=== PATIENT | female | born 1930 | race African-American/Black ===

== ENCOUNTER 2017-03-30 11:32 | Emergency (ER) | payer OTHER ==
[~2017-03-30] VITALS: Ht 154.9 cm; Wt 54.4 kg
[~2017-03-30 11:32] MED LIST: ASPIRIN EC81 M1 PO; CIPROFLOXACIN500 M1 PO; DIOVAN HCT 3201 EACH PO; FISH OIL 1,001000 M2 PO; GLIPIZIDE ER2.5 MG PO; GLIPIZIDE ER5 MG; GLUCOPHAGE500 MG PO; LOPRESSOR 50 MG50 M1; LOPRESSOR50 PO; LORTAB 5 MG/5001 TA1 PO; MULTIVITAMINS1 EAC7 PO; NORCO 5-325 TA1 EACH PO; NORVASC5 MG PO; PRAVACHOL80 MG PO; VITAMIN D1000 UNI1 PO
[2017-03-30] MEDS ORDERED: COD LIVER OIL1 EAC4 PO (12:12)
[2017-03-30] MEDS ORDERED: VITAMIN B-12500 MCG (12:12)
[2017-03-30 12:49] LABS: URINE BILIRUBIN NEGATIVE (Negative); URINE BLOOD NEGATIVE (Negative); URINE CLARITY CLEAR; URINE COLOR YELLOW; URINE GLUCOSE-RANDOM* NEGATIVE (Negative); URINE KETONES NEGATIVE (Negative); URINE LEUKOCYTES 1+ (Negative); URINE NITRITE NEGATIVE (Negative); URINE PROTEIN (DIPSTICK) NEGATIVE (Negative); URINE SPECIFIC GRAVITY >= 1.030 (1.005-1.035); URINE UROBILINOGEN 0.2 E.U./dl (0.2-1.0)
[2017-03-30 13:07] LABS: SQUAMOUS 4-10 Moderate /LPF (0-3)
[2017-03-30 13:08] LABS: URINE WBC 6-15 Few /HPF (0-5)
[2017-03-30 13:09] LABS: URINE RBC None Seen /HPF (0-2)
[2017-03-30 13:10] LABS: BACTERIA 1-9 Few /HPF (None Seen); CRYSTALS None Seen /LPF (None Seen); HYALINE CASTS 4-10 Moderate /LPF (None Seen)
[2017-03-30] MEDS ORDERED: KEFLEX500 M1 PO (13:13)
[2017-03-30] MEDS ORDERED: NORCO 5-325 TA1 EACH PO (13:17)
== END 2017-03-30 13:28 | disposition home or self-care (01) ==
LOC: ER 11:32
PROVIDERS: Emergency Medicine
DX: M25.551 Pain in right hip (principal); N39.0 Urinary tract infection, site not specified; E11.9 Type 2 diabetes mellitus without complications; I10 Essential (primary) hypertension; I21.9 Acute myocardial infarction, unspecified

== ENCOUNTER 2017-05-05 17:40 | Emergency (ER) | payer OTHER ==
[~2017-05-05] VITALS: Ht 157.5 cm; Wt 74.4 kg
[~2017-05-05 17:40] MED LIST changes: +COD LIVER OIL1 EAC4 PO; +KEFLEX500 M1 PO; +VITAMIN B-12500 MCG
[2017-05-05] MEDS ORDERED: DOXYCYCLINE 10100 MG PO (18:47)
[2017-05-05] MEDS ORDERED: CLOTRIMAZOLE 1%15 G1 TOP (18:47)
[2017-05-05] MEDS ORDERED: TRAMADOL 50 MG50 MG PO (18:47)
== END 2017-05-05 19:21 | disposition home or self-care (01) ==
LOC: ER 17:40
DX: L03.032 Cellulitis of left toe (principal); B35.1 Tinea unguium; I10 Essential (primary) hypertension; E11.9 Type 2 diabetes mellitus without complications; I25.2 Old myocardial infarction

== ENCOUNTER 2018-06-02 09:20 | Emergency (ER) | payer OTHER ==
[~2018-06-02] VITALS: Ht 154.9 cm; Wt 70.3 kg
[~2018-06-02 09:20] MED LIST changes: +CLOTRIMAZOLE 1%15 G1 TOP; +DOXYCYCLINE 10100 MG PO; +TRAMADOL 50 MG50 MG PO
[2018-06-02 10:18] LABS: ABSOLUTE NEUTROPHILS 4.3 thou/uL (1.4-8.2); BASOPHILS 0.8 % (0.0-2.0); EOSINOPHILS 1.6 % (0.0-3.0); HEMATOCRIT 33.2 % (37.0-47.0); HEMOGLOBIN 10.7 gm/dL (12.0-15.0); LYMPHOCYTES 28.2 % (24.0-44.0); MCH 28.7 pg (26.0-34.0); MCHC 32.4 g/dL (28.0-37.0); MCV 88.8 fL (80.0-100.0); MONOCYTES 8.1 % (1.0-8.0); PLATELET COUNT 190 thou/uL (150-400); POLYS 61.3 % (36.0-66.0); RBC 3.74 mil/uL (4.20-5.00); RDW 15.6 % (10.5-14.5)
[2018-06-02 10:21] LABS: ANION GAP 11 mmol/L (7-16); BUN 27 mg/dL (7-18); CALCIUM 10.1 mg/dL (8.5-10.1); CHLORIDE 105 mmol/L (98-107); CO2 24 mmol/L (21-32); CREATININE 1.3 mg/dL (0.6-1.0); GLUCOSE 120 mg/dL (74-106); POTASSIUM 4.5 mmol/L (3.5-5.1); SODIUM 140 mmol/L (136-145)
[2018-06-02 10:27] LABS: ALBUMIN 3.7 g/dL (3.4-5.0); DIRECT BILIRUBIN < 0.1 mg/dL (<0.1-0.3); SGOT 30 U/L (15-37); SGPT 24 U/L (30-65); TOTAL BILIRUBIN 0.3 mg/dL (<0.1-1.0); TOTAL PROTEIN 7.4 g/dL (6.4-8.2)
[2018-06-02 10:46] LABS: URINE BILIRUBIN NEGATIVE (Negative); URINE BLOOD NEGATIVE (Negative); URINE CLARITY CLEAR; URINE COLOR YELLOW; URINE GLUCOSE-RANDOM* NEGATIVE (Negative); URINE KETONES NEGATIVE (Negative); URINE NITRITE-REFLEX NEGATIVE (Negative); URINE PROTEIN (DIPSTICK) NEGATIVE (Negative); URINE SPECIFIC GRAVITY 1.015 (1.005-1.035); URINE UROBILINOGEN 0.2 E.U./dl (0.2-1.0)
[2018-06-02 10:48] LABS: URINE LEUKOCYTES-REFLEX 2+ (Negative)
[2018-06-02 10:53] LABS: SQUAMOUS >10 Many /LPF (0-3)
[2018-06-02 10:54] LABS: CASTS None Seen /LPF (None Seen); CRYSTALS None Seen /LPF (None Seen)
[2018-06-02 10:55] LABS: URINE RBC None Seen /HPF (0-2)
[2018-06-02] MEDS ORDERED: NORCO 5-325 TA1 EACH PO (12:51)
[2018-06-02 13:16] VITALS: BP 181/67
--- NOTE | 2018-06-03 15:12 | EKG ---
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 Tender: Anthony BANG : 1930 Requested By: Fernanda Pulido Order Number: [id number] MD: Jose Eric Measurements Intervals [place] Rate: 60 P: 27 CO: 177 QRS: -47 QRSD: 142 T: 151 QT: 438 QTc: 438 Interpretive Statements Sinus rhythm Atrial premature complex Left bundle branch block Possible anteroseptal infarct age indeterminate Compared to ECG 11/28/2013 12:23:38 ST changes anteriorly are less prominent Electronically Signed On 06-03-2018 15:12:10 CDT by Jose Eric [email or web address] ��������������������������������������������� <ELECTRONICALLY SIGNED> ���������������������������������������� By: Jose Eric MD ��������������������������������������������� 06/03/18 1512 0936 Jose Eric MD /EPI
== END 2018-06-02 13:20 | disposition home or self-care (01) ==
LOC: ER 09:20
PROVIDERS: Emergency Medicine
DX: S01.81XA Laceration without foreign body of other part of head, initial encounter (principal); N39.0 Urinary tract infection, site not specified; S40.012A Contusion of left shoulder, initial encounter; S40.011A Contusion of right shoulder, initial encounter; E11.9 Type 2 diabetes mellitus without complications; I10 Essential (primary) hypertension; W18.39XA Other fall on same level, initial encounter; Y92.89 Other specified places as the place of occurrence of the external cause; Y93.89 Activity, other specified; Y99.8 Other external cause status